=== PATIENT | male | born 1970 | race Caucasian/White ===

== ENCOUNTER 2019-04-16 15:28 | Inpatient (IN) | payer OTHER ==
[~2019-04-16] VITALS: Ht 182.9 cm; Wt 83.7 kg
[2019-04-16] MEDS ORDERED: AMLO10TA5 PO (15:40)
[2019-04-16] MEDS ORDERED: ATEN25TA PO (15:40)
[2019-04-16] MEDS ORDERED: LISI10TA4 PO (15:40)
[2019-04-16 16:37] LABS: BASO # 0.1 10^3/uL (0.0-0.2); BASO % 0.5 % (0.0-1.0); EOS # 0.1 10^3/uL (0.0-0.5); EOS % 0.7 % (0.0-3.0); HEMATOCRIT 29.7 % (42.0-52.0); HEMOGLOBIN 9.5 g/dl (13.5-17.5); LYMPH # 0.8 10^3/uL (1.5-5.0); LYMPH % 5.5 % (24.0-44.0); MEAN CORPUSCULAR HEMOGLOBIN 25.5 pg (27.0-33.0); MEAN CORPUSCULAR VOLUME 79.6 fl (80.0-96.0); MONO # 1.2 10^3/uL (0.0-0.8); MONO % 7.9 % (0.0-5.0); NEUTROPHILS # 12.9 10^3/uL (1.5-8.5); NEUTROPHILS % 84.9 % (36.0-66.0); PLATELET COUNT, AUTOMATED 292 10^3/uL (150-450); RED BLOOD COUNT 3.73 10^6/uL (4.30-6.10); WHITE BLOOD COUNT 15.2 10^3/uL (4.0-10.0)
[2019-04-16 16:50] LABS: INR 1.15; PROTHROMBIN TIME 14.5 SECONDS (11.8-14.0)
[2019-04-16 16:51] LABS: PARTIAL THROMBOPLASTIN TIME 35.1 SECONDS (25.0-38.4)
[2019-04-16 17:11] LABS: ALBUMIN 2.1 GM/DL (3.2-5.2); ALT/SGPT 130 U/L (12-78); BILIRUBIN,DIRECT 5.2 MG/DL (0.0-0.2); BILIRUBIN,TOTAL 6.8 MG/DL (0.2-1.0); BLOOD UREA NITROGEN 13 MG/DL (7-18); CALCIUM LEVEL 8.2 MG/DL (8.5-10.1); CARBON DIOXIDE LEVEL 27 MEQ/L (21-32); CHLORIDE LEVEL 96 MEQ/L (98-107); CK-MB VALUE MASS 3.3 NG/ML (<3.6); CPK CREATINE PHOSPHOKINASE 92 U/L (39-308); CREATININE FOR GFR 0.58 MG/DL (0.70-1.30); GLOMERULAR FILTRATION RATE > 60.0 (>60); GLUCOSE, FASTING 132 MG/DL (70-100); LIPASE 146 U/L (73-393); MB/CK RELATIVE INDEX 3.59 (< OR =4); SODIUM LEVEL 132 MEQ/L (136-145); TROPONIN I < 0.02 NG/ML (< 0.10)
[2019-04-16] MEDS ORDERED: ISOVUE-370 76% 100ML VIAL (Q9967) As Ordered ONE (18:07)
[2019-04-16] MEDS ORDERED: OMEP20CA4 PO (18:49)
[2019-04-16] MEDS ORDERED: NAPR-885 PO (18:49)
[2019-04-16] MEDS ORDERED: CYCL10TA PO (18:49)
--- NOTE | 2019-04-16 19:09 | HPEPDOC ---
[facility] Medical History & Physical Date of Admission Apr 16, 2019 Date of Service: Apr 16, 2019 Primary Care Physician: A Attending Physician: JUSTIN NEWBY MD History and Physical TIME OF SERVICE: 8 PM CHIEF COMPLAINT: Bloating HISTORY OF PRESENT ILLNESS: This is a 48-year-old male who presents with complaints of bloating and abdominal discomfort that has gradually worsened over the last 3 weeks. He denies having overt abdominal pain. As a result of the abdominal bloating he has not been able to eat very much. He denies having fevers, chills, nausea, vomiting, diarrhea, or leg swelling. He does admit to feeling like he has gained weight. He admits to being told that he has liver problems, but reports that he was told by a physician that his liver is doing better. He's also had esophageal varices, history of lower GI bleed, but denies having history of pancreatitis. H is last drink was about 4 weeks ago; he denies ever having seizures if he abstains from alcohol. His father was at the bedside admits that the patient's skin and eyes look more yellow than usual. REVIEW OF SYSTEMS: 12 point review of systems negative except as listed in HPI PAST MEDICAL/ SURGICAL HISTORY: Liver cirrhosis complicated by esophageal varices status post banding a few months ago and lower GI bleed Chronic hypertension. SOCIAL HISTORY: Quit smoking Drinks alcohol. Reports last was 4 weeks ago Smokes marijuana FAMILY HISTORY: Hypertension Coronary artery disease ALLERGIES: Please see below. HOME MEDICATIONS: Please see below. PHYSICAL EXAMINATION: VITAL SIGNS: Please see below. GENERAL APPEARANCE: Well-nourished, well-developed, not in apparent distress HEENT: Normocephalic, atraumatic. Marked scleral icterus. Mucous membranes slightly dry CARDIOVASCULAR: Tachycardic, no murmurs, rubs or gallops, extremity is warm and well-perfused, there is no lower extremity edema LUNGS: Decreased ability to take deep breaths because of abdominal distention, the lungs are clear to auscultation bilaterally on room air ABDOMEN: Markedly distended, firm patient does not grimace with palpation of abdomen MUSCULOSKELETAL: Range of motion intact in all 4 extremities INTEGUMENT: Jaundice NEUROLOGICAL: Cranial nerves II-12 are grossly intact. Speech is not dysarthric PSYCHIATRIC: Alert and oriented to person, place and time, able to understand and follow commands LABORATORY DATA: See below. IMAGING: Chest x-ray appears unremarkable but final read is pending. CT abdomen and pelvis "IMPRESSION: 1. Cirrhosis, splenomegaly and large volume ascites. 2. Edematous appearing ascending colon. This can commonly be seen in the setting of hepatic failure with hypoalbuminemia. Focal colitis could also give the appearance." ASSESSMENT: Mr. Pace is a 48-year-old male with a past medical history of chronic hypertension, liver cirrhosis who will be admitted for diagnostic and t herapeutic paracentesis. PLAN: 1. Ascites Likely secondary to liver cirrhosis. Plan: f/u strict Is and Os and daily weights / salt restriction to <2g / abstinence from alcohol +/- baclofen / stop all NSAIDs (Naproxen) & ACEI (Lisinopril) / since he doesn't have a fever, abdominal pain or tenderness, or altered mental status we will hold off starting abx until we have the PMN / IR consult for diagnostic and therapeutic paracentesis / post paracentesis f/u serum albumin, INR, ascitic fluid cell count & differential, ascitic fluild culture, ascitic fluid total protein, ascitic fluid albumin, ascitic fluild glucose, ascitic fluid gram stain, ascitic fluid AFB smear and culture / IF 5L or more of ascitic fluid is removed we will give 6-8g/L of albumin + start diuretic thepray with Spirinolactone 50mg + lasix 20mg AFTER the procedure has been done and the SAAG score is calculated 2. Liver cirrhosis/ Esophageal Varicies Likely due to alcohol abuse. Despite elevated LFTs he denies having overt abdominal pain Plan: trend LFTs & coags/ f/u serum Etho, UDS & hepatitis panel / patient is new to the area and will need an outpatient referral to event manager 3. Alcohol Abuse Plan: telemetry / seizure precautions / fall precautions / Thiamine 100mg daily, Folic acid 1mg daily, MVI / IVF / Zofran PRN for n/v /social work consult for referral to AA or other local support group / Ativan Q2H PRN per CIWA protocol 4. Leukocytosis. Differential includes SBP versus reactive vs colitis He denied having n/v/d Plan: monitor vitals 5. Microcytic anemia Likely multifactorial in nature Plan: Follow-up iron studies and stool occult 6. Mild hypervolemic hyponatremia. 2/2 fluid overload due to liver failure +/- beer potomania Plan: Follow-up urine sodium and osmolality/ follow-up BMP in the morning 7. Hyperglycemia. Plan: Follow-up A1c 8.Chronic HTN Plan: hold lisinopril bc of acities / c/w amlodipine & atenolol and uptitrate as needed [place] Prediction Score to determine need for AC in hospitalized pts = 3 points Pharmacologic prophylaxis is NOT indicated. Consider using mechanical prophylaxis. = SCDs Disposition pending clinical course Vital Signs Vital Signs Date Time Temp Pulse Resp B/P (MAP) Pulse Ox O2 Delivery O2 Flow Rate FiO2 04/16/19 18:43 104 99 04/16/19 18:30 167/92 (117) 04/16/19 16:16 99.5 16 Room Air Laboratory Data Labs 24H Laboratory Tests 2 04/16/19 16:27: Immature Granulocyte % (Auto) 0.5, White Blood Count 15.2H, Red Blood Count 3.73L, Hemoglobin 9.5L, Hematocrit 29.7L, Mean Corpuscular Volume 79.6L, Mean Corpuscular Hemoglobin 25.5L, Mean Corpuscular Hemoglobin Concent 32.0, Red Cell Distribution Width 29.8H, Platelet Count 292, Neutrophils (%) (Auto) 84.9H, Lymphocytes (%) (Auto) 5.5L, Monocytes (%) (Auto) 7.9H, Eosinophils (%) (Auto) 0.7, Basophils (%) (Auto) 0.5, Neutrophils # (Auto) 12.9H, Lymphocytes # (Auto) 0.8L, Monocytes # (Auto) 1.2H, Eosinophils # (Auto) 0.1, Basophils # (Auto) 0.1, Nucleated Red Blood Cells % (auto) 0.0, Prothrombin Time 14.5H, Prothromb Time International Ratio 1.15, Activated Partial Thromboplast Time 35.1, Anion Gap 9, Glomerular Filtration Rate > 60.0, Calcium Level 8.2L, Aspartate Amino Transf (AST/SGOT) 283H, Alanine Aminotransferase (ALT/SGPT) 130H, Alkaline Phosphatase 240H, Total Bilirubin 6.8H, Direct Bilirubin 5.2H, Ammonia 16.37803, Total Creatine Kinase 92, Creatine Kinase MB 3.3, Creatine Kinase MB Relative Index 3.59, Troponin I < 0.02, Total Protein 7.0, Albumin 2.1L, Albumin/Globulin Ratio 0.43L, Lipase 146 CBC/BMP Laboratory Tests 04/16/19 16:27 Red Blood Count 3.73 L, Mean Corpuscular Volume 79.6 L, Mean Corpuscular Hemoglobin 25.5 L, Mean Corpuscular Hemoglobin Concent 32.0, Red Cell Distribution Width 29.8 H, Neutrophils (%) (Auto) 84.9 H, Lymphocytes (%) (Auto) 5.5 L, Monocytes (%) (Auto) 7.9 H, Eosinophils (%) (Auto) 0.7, Basophils (%) (Auto) 0.5, Neutrophils # (Auto) 12.9 H, Lymphocytes # (Auto) 0.8 L, Monocytes # (Auto) 1.2 H, Eosinophils # (Auto) 0.1, Basophils # (Auto) 0.1 Microbiology Microbiology 04/16/19 Blood Culture, Received Pending Home Medications Scheduled Amlodipine Besylate (Amlodipine Besylate) 10 Mg Tablet, 10 MG PO DAILY Atenolol (Atenolol) 50 Mg Tablet, 50 MG PO DAILY Lisinopril (Lisinopril) 10 Mg Tablet, 10 MG PO DAILY Omeprazole (Omeprazole) 20 Mg Capsule.dr, 20 MG PO DAILY Scheduled PRN Cyclobenzaprine HCl (Cyclobenzaprine HCl) 10 Mg Tablet, 10 MG PO QHS PRN for MUSCLE SPASMS Naproxen (Naproxen) 500 Mg Tablet, 500 MG PO BID PRN for PAIN Allergies Coded Allergies: No Known Allergies (Unverified , 04/16/19) A-FIB/CHADSVASC A-FIB History Current/History of A-Fib/PAF?: No Current PO Anticoag Therapy: JUSTIN Clement MD Apr 16, 2019 19:09
[2019-04-16] MEDS ORDERED: ATEN50TA2 PO (19:21)
--- NOTE | 2019-04-16 19:38 | REPVR ---
PROCEDURE INFORMATION: Exam: CT Abdomen and pelvis with contrast Exam date and time: 04/16/2019 6:28 PM Clinical history: 48 years old, male; Bloating; Additional info: Distended TECHNIQUE: Imaging protocol: Computed tomography of the abdomen and pelvis with intravenous contrast. Radiation optimization: All CT scans at this facility use at least one of these dose optimization techniques: automated exposure control; mA and/or kV adjustment per patient size (includes targeted exams where dose is matched to clinical indication); or iterative reconstruction. Contrast material: ISOVUE 370; Contrast volume: 100 ml; Contrast route: IV; COMPARISON: No relevant prior studies available. FINDINGS: Lungs: Atelectatic change is present in the right lung base. Liver: Liver appears cirrhotic with nodular margins. No focal lesion. Gallbladder and bile ducts: Gallbladder is distended. No stones or ductal dilatation. Pancreas: Pancreas appears normal. No focal mass or peripancreatic inflammation. Spleen: Spleen is enlarged measuring 15 cm. No focal lesion. Adrenals: Adrenal glands are normal in appearance. Kidneys and ureters: Kidneys appear normal, with no stone, solid mass or hydronephrosis. Stomach and bowel: No evidence of small bowel obstruction. There may be mild ascending colonic wall thickening which can be seen with hypoalbuminemia related to hepatic failure. No convincing evidence of diverticulitis. Appendix: Appendix appears normal and air-filled. Intraperitoneal space: Large volume abdominal and pelvic transudate density free fluid. No peripherally enhancing collection. No pneumoperitoneum. No pneumoperitoneum. Vasculature: Main portal and splenic veins enhance normally. Atherosclerotic change present in the aorta, without aneurysm. Lymph nodes: No enlarged lymph nodes. Bladder: Urinary bladder appears normal. Bones/joints: Bony structures show no acute fracture or destructive process. Soft tissues: Fat containing umbilical hernia is present. IMPRESSION: 1. Cirrhosis, splenomegaly and large volume ascites. 2. Edematous appearing ascending colon. This can commonly be seen in the setting of hepatic failure with hypoalbuminemia. Focal colitis could also give the appearance. COMMENT: Consistent with the [employer]'s Incidental Findings Committee Report (J Am Tripp Radiol 2010): Unless the patient's specific circumstances suggest otherwise, any liver lesion 0.5 cm or less, any cystic kidney lesion less than 1.0 cm, and/or any adrenal lesion 1.0 cm or less not otherwise characterized in this report as possessing suspicious or indeterminate imaging features is/are highly likely to be benign and do not require follow-up imaging or biopsy. Electronically signed by: Thierry Balbuena On 04/16/2019 19:38:24 PM
[2019-04-16 20:19] LABS: ETHYL ALCOHOL (ETHANOL) < 0.003 % (0.000-0.010); FERRITIN 72 NG/ML (26-388); IRON (FE) 79 UG/DL (65-175); PERCENT SATURATION 32.2 % (19.7-50.0); TOTAL IRON BINDING CAPACITY 245 UG/DL (250-450)
[2019-04-16] MEDS ORDERED: ENOXAPARIN 40 MG/0.4 ML SYRINGE (J1650) SC SCH (21:00)
[2019-04-16 21:58] LABS: AMPHETAMINES LEVEL URINE NEGATIVE (NEGATIVE); BARBITURATES URINE NEGATIVE (NEGATIVE); BENZODIAZEPINES URINE POSITIVE (NEGATIVE); CANNABINOIDS URINE POSITIVE (NEGATIVE); COCAINE METABOLITE URINE NEGATIVE (NEGATIVE); METHADONE URINE NEGATIVE (NEGATIVE); OPIATES URINE NEGATIVE (NEGATIVE); PHENCYCLIDINE URINE NEGATIVE (NEGATIVE)
[2019-04-16 22:10] VITALS: BP 160/85
[2019-04-16] MEDS ORDERED: diphenhydrAMINE 25 MG CAP PO ONE (22:30)
[2019-04-16] MEDS ORDERED: CYCLOBENZAPRINE 10 MG TAB PO PRN (23:00)
[2019-04-16] MEDS ORDERED: ONDANSETRON 4 MG TAB (S0181) PO PRN (23:00)
[2019-04-16] MEDS ORDERED: LORazepam 2 MG TAB PO PRN (23:00)
[2019-04-16 23:59] VITALS: BP 148/90
[2019-04-17 04:00] VITALS: BP 158/91
[2019-04-17] MEDS ORDERED: traMADol 50 MG TAB PO ONE (04:30)
[2019-04-17 06:14] LABS: HEMATOCRIT 29.1 % (42.0-52.0); HEMOGLOBIN 9.3 g/dl (13.5-17.5); MEAN CORPUSCULAR HEMOGLOBIN 25.7 pg (27.0-33.0); MEAN CORPUSCULAR VOLUME 80.4 fl (80.0-96.0); PLATELET COUNT, AUTOMATED 252 10^3/uL (150-450); RED BLOOD COUNT 3.62 10^6/uL (4.30-6.10); WHITE BLOOD COUNT 15.5 10^3/uL (4.0-10.0)
[2019-04-17 06:36] LABS: ALT/SGPT 116 U/L (12-78); BLOOD UREA NITROGEN 14 MG/DL (7-18); CALCIUM LEVEL 8.3 MG/DL (8.5-10.1); CARBON DIOXIDE LEVEL 28 MEQ/L (21-32); CHLORIDE LEVEL 96 MEQ/L (98-107); CREATININE FOR GFR 0.47 MG/DL (0.70-1.30); GLOMERULAR FILTRATION RATE > 60.0 (>60); GLUCOSE, FASTING 96 MG/DL (70-100); POTASSIUM SERUM 3.7 MEQ/L (3.5-5.1); SODIUM LEVEL 131 MEQ/L (136-145); TOTAL PROTEIN 7.1 GM/DL (6.4-8.2)
--- NOTE | 2019-04-17 07:56 | REP ---
PA and lateral chest: There are no comparisons. There is an incomplete inspiratory effort. The left cardiac margin has an unusual shape, of uncertain significance. This could possibly represent a pericardial cyst or myocardial aneurysm. Cardiac size is mildly enlarged. The [place], mediastinum, and skeletal structures are unremarkable. Electronically Signed by Kody Carroll MD 04/17/2019 07:48 A
[2019-04-17 08:00] VITALS: BP 174/94
--- NOTE | 2019-04-17 08:14 | ECGEPIP ---
[facility] - ED Test Date: 2019-04-16 Pat Name: PARTH CARDOSO Department: Room: - Gender: Male [employer] Rental Manager: anne marie : 1970 Requested By: RUSSELL Peralta Order Number: [id number] Reading MD: Rosa Campbell Measurements Intervals [place] Rate: 108 P: 52 DE: 169 QRS: -1 QRSD: 95 T: -17 QT: 281 QTc: 377 Interpretive Statements SINUS TACHYCARDIA LEFT ATRIAL ENLARGEMENT POSSIBLE LEFT VENTRICULAR HYPERTROPHY INFERIOR MYOCARDIAL INFARCTION, OF INDETERMINATE AGE, CLINICAL CORRELATION NSTTW abnormalities PRWP No prior Electronically Signed on 04-17-2019 8:13:53 EDT by Rosa Campbell
[2019-04-17] MEDS: OMEPRAZOLE 20 MG CAP PO SCH (08:43)
[2019-04-17] MEDS: ATENOLOL 50 MG TAB PO SCH (08:43)
[2019-04-17] MEDS: amLODIPine 10 MG TAB PO SCH (08:43)
[2019-04-17] MEDS: PRENATAL VITAMINS CHEWABLE TABLET PO SCH (08:43)
[2019-04-17] MEDS: THIAMINE 100 MG TAB PO SCH (08:43)
[2019-04-17] MEDS: FOLIC ACID 1 MG TAB PO SCH (08:43)
[2019-04-17] MEDS ORDERED: ALPRAZolam 0.25 MG TAB PO PRN (08:45)
[2019-04-17] MEDS ORDERED: INFLUENZA QUADRIVALENT PF VACCINE 0.5ML SYRINGE (90686) IM ONE (09:00)
--- NOTE | 2019-04-17 09:29 | IPNPDOC ---
Subjective Date Seen The patient was seen on 04/17/19. Subjective Chief Complaint/HPI Patient is feeling very anxious. He was thinking to leave the hospital because he is he is not feeling comfortable, does not awake to tomorrow for paracentesis. I had a long discussion with patient, all the risks and benefits of getting proper treatment were expressed. Patient finally decided to stay living tomorrow till he gets his paracentesis done as long as his anxiety is addressed General: Reports: Other Symptoms (anxious); Denies: ROS Unobtainable, Chills, Night Sweats, Fatigue, Malaise, Normal Appetite Constitutional: Denies: Chills, Fever, Malaise, Night Sweats, Weakness, Fatigue, Weight Loss, Lethargy, Other Pulmonary: Denies: Dyspnea, Cough, Pleuritic Chest Pain, Other Symptoms Cardiovascular: Denies: Chest Pain, Palpitations, Orthopnea, Paroxysmal Noc. Dyspnea, Edema, Lt Headedness, Other Symptoms Musculoskeletal: Denies: Neck Pain, Back Pain, Shoulder Pain, Arm Pain, Hand Pain, Leg Pain, Foot Pain, Joint Pain, Muscle Pain, Spasms, Other Symptoms Neurological: Denies: Weakness, Numbness, Incoordination, Change in speech, Confusion, Seizures, Other Symptoms Psych: Reports: Anxiety Objective Physical Examination General Exam: Positive: Alert, Cooperative, Other (anxious) Eye Exam: Positive: PERRLA, Conjunctiva & lids normal ENT Exam: Positive: Atraumatic, Mucous membr. moist/pink Neck Exam: Positive: Supple Chest Exam: Positive: Clear to auscultation, Normal air movement Heart Exam: Positive: Rate Normal, Normal S1, Normal S2 Abdomen Exam: Positive: Normal bowel sounds Extremity Exam: Positive: Normal pulses Skin Exam: Positive: Nl turgor and temperature Neuro Exam: Positive: Normal Speech, Strength at 5/5 X4 ext, Sensation Intact Psych Exam: Positive: Anxiety Assessment /Plan Problems (1) Ascites Status: Acute Problem Text: Ascites secondary to liver cirrhosis Paracentesis by interventional radiologist has been ordered Radiology department called cannot be done today. Will be done hopefully tomorrow Continue supportive care Continue present medications (2) Cirrhosis Status: Chronic Problem Text: History of liver cirrhosis and esophageal varices secondary to alcohol abuse Patient is otherwise asymptomatic except ascites Was the ascites was drained. Patient will be discharged home tomorrow A low with GI as an outpatient Continue present medications (3) Anxiety Status: Acute Problem Text: History of anxiety and also could be secondary to alcohol withdrawal Will consider given him Xanax 0.25 mg by mouth every 8 hours when necessary monitor his mental status Reassuring and counseling done at bedside Plan/VTE VTE Prophylaxis Ordered?: Yes VS, I&O, 24H, Fishbone Vital Signs/I&O Vital Signs Date Time Temp Pulse Resp B/P (MAP) Pulse Ox O2 Delivery O2 Flow Rate FiO2 04/17/19 08:43 117 174/94 04/17/19 08:00 99.4 20 96 04/16/19 16:16 Room Air I&O- Last 24 Hours up to 6 AM 04/17/19 06:00 Intake Total 0 ml Balance 0 ml Laboratory Data 24H LABS Laboratory Tests 2 04/16/19 16:27: Immature Granulocyte % (Auto) 0.5, White Blood Count 15.2H, Red Blood Count 3.73L, Hemoglobin 9.5L, Hematocrit 29.7L, Mean Corpuscular Volume 79.6L, Mean Corpuscular Hemoglobin 25.5L, Mean Corpuscular Hemoglobin Concent 32.0, Red Cell Distribution Width 29.8H, Platelet Count 292, Neutrophils (%) (Auto) 84.9H, Lymphocytes (%) (Auto) 5.5L, Monocytes (%) (Auto) 7.9H, Eosinophils (%) (Auto) 0.7, Basophils (%) (Auto) 0.5, Neutrophils # (Auto) 12.9H, Lymphocytes # (Auto) 0.8L, Monocytes # (Auto) 1.2H, Eosinophils # (Auto) 0.1, Basophils # (Auto) 0.1, Nucleated Red Blood Cells % (auto) 0.0, Prothrombin Time 14.5H, Prothromb Time International Ratio 1.15, Activated Partial Thromboplast Time 35.1, Anion Gap 9, Glomerular Filtration Rate > 60.0, Calcium Level 8.2L, Aspartate Amino Transf (AST/SGOT) 283H, Alanine Aminotransferase (ALT/SGPT) 130H, Alkaline Phosphatase 240H, Total Bilirubin 6.8H, Direct Bilirubin 5.2H, Ammonia 16.42018, Total Creatine Kinase 92, Creatine Kinase MB 3.3, Creatine Kinase MB Relative Index 3.59, Troponin I < 0.02, Total Protein 7.0, Albumin 2.1L, Albumin/Globulin Ratio 0.43L, Lipase 146, Urine Amphetamines Screen NEGATIVE, Urine Benzodiazepines Screen POSITIVEH, Urine Opiates Screen NEGATIVE, Urine Methadone Screen NEGATIVE, Urine Barbiturates Screen NEGATIVE, Urine Phencyclidine Screen NEGATIVE, Urine Cocaine Metabolite Screen NEGATIVE, Urine Cannabinoids Screen POSITIVEH 04/16/19 19:25: Iron Level 79, Total Iron Binding Capacity 245L, Transferrin % Saturation 32.2, Ferritin 72, Ethyl Alcohol Level < 0.003 04/16/19 22:36: OL-Mpe-U-Type Natriuretic Peptide 90 04/17/19 05:59: Nucleated Red Blood Cells % (auto) 0.0, Anion Gap 7L, Glomerular Filtration Rate > 60.0, Calcium Level 8.3L, Aspartate Amino Transf (AST/SGOT) 257H, Alanine Aminotransferase (ALT/SGPT) 116H, Alkaline Phosphatase 229H, Total Bilirubin 6.0H, Total Protein 7.1, Albumin 2.0L, Albumin/Globulin Ratio 0.39L, Blood Urea Nitrogen 14, Creatinine 0.47L, Sodium Level 131L, Potassium Level 3.7, Chloride Level 96L, Carbon Dioxide Level 28, Magnesium Level 2.0 CBC/BMP Laboratory Tests 04/16/19 16:27 Red Blood Count 3.73 L, Mean Corpuscular Volume 79.6 L, Mean Corpuscular Hemoglobin 25.5 L, Mean Corpuscular Hemoglobin Concent 32.0, Red Cell Distrib ution Width 29.8 H, Neutrophils (%) (Auto) 84.9 H, Lymphocytes (%) (Auto) 5.5 L, Monocytes (%) (Auto) 7.9 H, Eosinophils (%) (Auto) 0.7, Basophils (%) (Auto) 0.5, Neutrophils # (Auto) 12.9 H, Lymphocytes # (Auto) 0.8 L, Monocytes # (Auto) 1.2 H, Eosinophils # (Auto) 0.1, Basophils # (Auto) 0.1 04/17/19 05:59 Red Blood Count 3.62 L, Mean Corpuscular Volume 80.4, Mean Corpuscular Hemoglobin 25.7 L, Mean Corpuscular Hemoglobin Concent 32.0, Red Cell Distribution Width 30.3 H, Calcium Level 8.3 L, Aspartate Amino Transf (AST/SGOT) 257 H, Alanine Aminotransferase (ALT/SGPT) 116 H, Alkaline Phosphatase 229 H, Total Bilirubin 6.0 H, Total Protein 7.1, Albumin 2.0 L Microbiology Microbiology 04/16/19 Blood Culture, Received Pending 04/16/19 Blood Culture, Received Pending RAMBO PARKER MD Apr 17, 2019 09:29
[2019-04-17 12:00] VITALS: BP 173/89
[2019-04-17 16:00] VITALS: BP 127/65
[2019-04-17] MEDS ORDERED: SLF 3 ML SYR IV PRN (16:00)
[2019-04-17] MEDS ORDERED: raNITIdine SYRUP 150 MG/10 ML UDC PO PRN (19:15)
[2019-04-17] MEDS ORDERED: CALCIUM CARBONATE 500 MG CHEW U/D PO PRN (19:15)
[2019-04-17 20:00] VITALS: BP 143/81
[2019-04-17] MEDS: SLF 3 ML SYR IV SCH (22:08)
[2019-04-17 23:59] VITALS: BP 134/84
[2019-04-18] VITALS (13 sets, daily range): BP systolic 120–137; BP diastolic 58–94
[2019-04-18 05:49] LABS: BASO # 0.1 10^3/uL (0.0-0.2); BASO % 0.6 % (0.0-1.0); EOS # 0.4 10^3/uL (0.0-0.5); EOS % 2.4 % (0.0-3.0); HEMATOCRIT 31.6 % (42.0-52.0); LYMPH # 1.6 10^3/uL (1.5-5.0); MEAN CORPUSCULAR HEMOGLOBIN 26.3 pg (27.0-33.0); MEAN CORPUSCULAR HGB CONC 31.6 g/dl (32.0-36.5); MEAN CORPUSCULAR VOLUME 83.2 fl (80.0-96.0); MONO # 1.7 10^3/uL (0.0-0.8); MONO % 10.6 % (0.0-5.0); NEUTROPHILS # 11.9 10^3/uL (1.5-8.5); NEUTROPHILS % 75.8 % (36.0-66.0); PLATELET COUNT, AUTOMATED 224 10^3/uL (150-450); WHITE BLOOD COUNT 15.7 10^3/uL (4.0-10.0)
[2019-04-18 06:12] LABS: ALT/SGPT 110 U/L (12-78); BILIRUBIN,TOTAL 4.8 MG/DL (0.2-1.0); BLOOD UREA NITROGEN 11 MG/DL (7-18); CALCIUM LEVEL 8.2 MG/DL (8.5-10.1); CARBON DIOXIDE LEVEL 28 MEQ/L (21-32); CHLORIDE LEVEL 96 MEQ/L (98-107); CREATININE FOR GFR 0.47 MG/DL (0.70-1.30); GLOMERULAR FILTRATION RATE > 60.0 (>60); GLUCOSE, FASTING 93 MG/DL (70-100); POTASSIUM SERUM 3.5 MEQ/L (3.5-5.1); SODIUM LEVEL 130 MEQ/L (136-145); TOTAL PROTEIN 7.2 GM/DL (6.4-8.2)
[2019-04-18] MEDS: SLF 3 ML SYR IV SCH ×3 (06:33→20:07)
[2019-04-18] MEDS: PRENATAL VITAMINS CHEWABLE TABLET PO SCH (08:23)
[2019-04-18] MEDS: FOLIC ACID 1 MG TAB PO SCH (08:23)
[2019-04-18] MEDS: OMEPRAZOLE 20 MG CAP PO SCH (08:23)
[2019-04-18] MEDS: amLODIPine 10 MG TAB PO SCH (08:24)
[2019-04-18] MEDS: THIAMINE 100 MG TAB PO SCH (08:24)
[2019-04-18] MEDS: ATENOLOL 50 MG TAB PO SCH (08:24)
--- NOTE | 2019-04-18 09:49 | IPNPDOC ---
Subjective Date Seen The patient was seen on 04/18/19. Subjective Chief Complaint/HPI Patient is comfortable offers no new complaints, awaiting paracentesis. General: Denies: ROS Unobtainable, Chills, Night Sweats, Fatigue, Malaise, Normal Appetite, Other Symptoms Constitutional: Denies: Chills, Fever, Malaise, Night Sweats, Weakness, Fatigue, Weight Loss, Lethargy, Other Pulmonary: Denies: Dyspnea, Cough, Pleuritic Chest Pain, Other Symptoms Cardiovascular: Denies: Chest Pain, Palpitations, Orthopnea, Paroxysmal Noc. Dyspnea, Edema, Lt Headedness, Other Symptoms Gastrointestinal: Denies: Nausea, Vomiting, Abdominal Pain, Diarrhea, Constipation, Melena, Hematochezia, Other Symptoms Musculoskeletal: Denies: Neck Pain, Back Pain, Shoulder Pain, Arm Pain, Hand Pain, Leg Pain, Foot Pain, Joint Pain, Muscle Pain, Spasms, Other Symptoms Neurological: Denies: Weakness, Numbness, Incoordination, Change in speech, Confusion, Seizures, Other Symptoms Objective Physical Examination Neck Exam: Positive: Supple Chest Exam: Positive: Clear to auscultation, Normal air movement Heart Exam: Positive: Rate Normal, Normal S1, Normal S2 Abdomen Exam: Positive: Normal bowel sounds Extremity Exam: Positive: Normal pulses Skin Exam: Positive: Nl turgor and temperature Neuro Exam: Positive: Normal Speech, Strength at 5/5 X4 ext, Sensation Intact Psych Exam: Positive: Anxiety Assessment /Plan Problems (1) Ascites Status: Acute Problem Text: Ascites secondary to liver cirrhosis Patient is a scheduled for paracentesis by IR today Will monitor patient off paracentesis for a few hours to make sure his vital signs are stable He will probably discharge home today with follow-up with GI and continue all his home meds Patient is clinically asymptomatic except large ascites (2) Cirrhosis Status: Chronic Problem Text: History of liver cirrhosis and esophageal varices secondary to alcohol abuse Patient is otherwise asymptomatic except ascites Paracentesis today Follow-up with GI as an outpatient ,Continue present medications (3) Anxiety Status: Acute Problem Text: History of anxiety and also could be secondary to alcohol withdrawal Will consider given him Xanax 0.25 mg by mouth every 8 hours when necessary monitor his mental status Reassuring and counseling done at bedside Plan/VTE VTE Prophylaxis Ordered?: Yes VS, I&O, 24H, Fishbone Vital Signs/I&O Vital Signs Date Time Temp Pulse Resp B/P (MAP) Pulse Ox O2 Delivery O2 Flow Rate FiO2 04/18/19 08:24 98 137/94 04/18/19 07:42 97.3 18 98 04/16/19 16:16 Room Air I&O- Last 24 Hours up to 6 AM 04/18/19 06:00 Intake Total 1100 ml Output Total 400 ml Balance 700 ml Laboratory Data 24H LABS Laboratory Tests 2 04/18/19 05:32: Immature Granulocyte % (Auto) 0.6, White Blood Count 15.7H, Red Blood Count 3.80L, Hemoglobin 10.0L, Hematocrit 31.6L, Mean Corpuscular Volume 83.2, Mean Corpuscular Hemoglobin 26.3L, Mean Corpuscular Hemoglobin Concent 31.6L, Red Cell Distribution Width 30.1H, Platelet Count 224, Neutrophils (%) (Auto) 75.8H, Lymphocytes (%) (Auto) 10.0L, Monocytes (%) (Auto) 10.6H, Eosinophils (%) (Auto) 2.4, Basophils (%) (Auto) 0.6, Neutrophils # (Auto) 11.9H, Lymphocytes # (Auto) 1.6, Monocytes # (Auto) 1.7H, Eosinophils # (Auto) 0.4, Basophils # (Auto) 0.1, Nucleated Red Blood Cells % (auto) 0.0, Anion Gap 6L, Glomerular Filtration Rate > 60.0, Blood Urea Nitrogen 11, Creatinine 0.47L, Sodium Level 130L, Potassium Level 3.5, Chloride Level 96L, Carbon Dioxide Level 28, Calcium Level 8.2L, Aspartate Amino Transf (AST/SGOT) 238H, Alanine Aminotransferase (ALT/SGPT) 110H, Alkaline Phosphatase 245H, Total Bilirubin 4.8H, Total Protein 7.2, [place] min 2.0L, Albumin/Globulin Ratio 0.38L CBC/BMP Laboratory Tests 04/18/19 05:32 Red Blood Count 3.80 L, Mean Corpuscular Volume 83.2, Mean Corpuscular Hemoglobin 26.3 L, Mean Corpuscular Hemoglobin Concent 31.6 L, Red Cell Distribution Width 30.1 H, Neutrophils (%) (Auto) 75.8 H, Lymphocytes (%) (Auto) 10.0 L, Monocytes (%) (Auto) 10.6 H, Eosinophils (%) (Auto) 2.4, Basophils (%) (Auto) 0.6, Neutrophils # (Auto) 11.9 H, Lymphocytes # (Auto) 1.6, Monocytes # (Auto) 1.7 H, Eosinophils # (Auto) 0.4, Basophils # (Auto) 0.1, Calcium Level 8.2 L, Aspartate Amino Transf (AST/SGOT) 238 H, Alanine Aminotransferase (ALT/SGPT) 110 H, Alkaline Phosphatase 245 H, Total Bilirubin 4.8 H, Total Protein 7.2, Albumin 2.0 L Microbiology Microbiology 04/16/19 Blood Culture - Preliminary, Resulted No growth after 24 hours . All specim... 04/16/19 Blood Culture - Preliminary, Resulted No growth after 24 hours . All specim... RAMBO PARKER MD Apr 18, 2019 09:49
[2019-04-18 11:27] LABS: FOLATE 8.7 NG/ML (>5.4); VITAMIN B12 LEVEL > 2000 PG/ML (247-911)
[2019-04-18 11:38] LABS: HEPATITIS B SURFACE ANTIGEN NEGATIVE (NEGATIVE)
[2019-04-18 11:51] LABS: SOURCE, BODY FLUID ASCITES
[2019-04-18 11:58] LABS: APPEARANCE, BODY FLUID CLEAR (CLEAR); ASCITES FL COLOR YELLOW (COLORLESS); SPEC. GRAVITY BODY FLUIDS 1.009 (NOT ESTABLISHED)
[2019-04-18 12:04] LABS: HEPATITIS C VIRUS ABY INDEX 0.2 INDEX (<0.8)
[2019-04-18 12:05] LABS: HEPATITIS B CORE ANTIBODY IGM NEGATIVE (NEGATIVE)
[2019-04-18 12:08] LABS: HEPATITIS A ANTIBODY IGM NEGATIVE (NEGATIVE)
[2019-04-18 12:30] LABS: SOURCE, BODY FLUID ALBUMIN ASCITES; SOURCE, BODY FLUID GLUCOSE ASCITES; SOURCE, BODY FLUID TOT PROTEIN ASCITES; TOTAL PROTEIN, BODY FLUID 0.4 G/DL (NOT ESTABLISHED)
--- NOTE | 2019-04-18 14:54 | REP ---
Ultrasound-guided paracentesis The procedure was performed under the direct supervision of Dr. Arredondo. The risks and benefits of the procedure were explained to the patient and informed consent was obtained. The largest pocket of fluid was localized in the right flank using ultrasound guidance. The skin was prepped and draped in a sterile fashion. 1% lidocaine was used as a local anesthetic. An 8-Wolof multi side-hole catheter was inserted using trocar technique. 9350 ml of yellow fluid was withdrawn with a sample sent to the lab for analysis. The patient tolerated the procedure well and there were no immediate complications. After the appropriate amount of monitored convalescence the patient was discharged from the department. Electronically Signed by TOMAS Salcedo 04/18/2019 01:28 P Electronically Signed by Kody Arredondo MD 04/18/2019 02:45 P
[2019-04-18] MEDS: cefTRIAXone SOD 1 GM in D5W MINI-BAG PLUS 50 ML IV SCH (17:17)
[2019-04-19] VITALS: BP 137/82
[2019-04-19 04:00] VITALS: BP 138/77
[2019-04-19] MEDS: SLF 3 ML SYR IV SCH ×2 (05:05→14:12)
[2019-04-19 05:58] LABS: BASO # 0.1 10^3/uL (0.0-0.2); BASO % 0.8 % (0.0-1.0); EOS # 0.3 10^3/uL (0.0-0.5); EOS % 2.1 % (0.0-3.0); HEMATOCRIT 29.8 % (42.0-52.0); HEMOGLOBIN 9.5 g/dl (13.5-17.5); LYMPH # 1.1 10^3/uL (1.5-5.0); LYMPH % 9.3 % (24.0-44.0); MEAN CORPUSCULAR HEMOGLOBIN 26.2 pg (27.0-33.0); MEAN CORPUSCULAR HGB CONC 31.9 g/dl (32.0-36.5); MEAN CORPUSCULAR VOLUME 82.3 fl (80.0-96.0); MONO # 1.2 10^3/uL (0.0-0.8); MONO % 9.5 % (0.0-5.0); NEUTROPHILS # 9.5 10^3/uL (1.5-8.5); NEUTROPHILS % 77.8 % (36.0-66.0); PLATELET COUNT, AUTOMATED 198 10^3/uL (150-450); RED BLOOD COUNT 3.62 10^6/uL (4.30-6.10); WHITE BLOOD COUNT 12.2 10^3/uL (4.0-10.0)
[2019-04-19 06:18] LABS: ALBUMIN 1.8 GM/DL (3.2-5.2); ALT/SGPT 91 U/L (12-78); BILIRUBIN,TOTAL 4.3 MG/DL (0.2-1.0); BLOOD UREA NITROGEN 11 MG/DL (7-18); CALCIUM LEVEL 7.7 MG/DL (8.5-10.1); CARBON DIOXIDE LEVEL 28 MEQ/L (21-32); CHLORIDE LEVEL 98 MEQ/L (98-107); CREATININE FOR GFR 0.44 MG/DL (0.70-1.30); GLOMERULAR FILTRATION RATE > 60.0 (>60); GLUCOSE, FASTING 86 MG/DL (70-100); POTASSIUM SERUM 3.4 MEQ/L (3.5-5.1); SODIUM LEVEL 133 MEQ/L (136-145); TOTAL PROTEIN 6.6 GM/DL (6.4-8.2)
[2019-04-19 07:49] VITALS: BP 131/68
[2019-04-19] MEDS ORDERED: POTASSIUM CHLORIDE 10 MEQ SR TABLET PO ONE (08:00)
[2019-04-19] MEDS: OMEPRAZOLE 20 MG CAP PO SCH (08:35)
[2019-04-19] MEDS: FOLIC ACID 1 MG TAB PO SCH (08:36)
[2019-04-19 08:37] VITALS: BP 140/74
[2019-04-19] MEDS: amLODIPine 10 MG TAB PO SCH (08:37)
[2019-04-19] MEDS: THIAMINE 100 MG TAB PO SCH (08:37)
[2019-04-19] MEDS: ATENOLOL 50 MG TAB PO SCH (08:37)
[2019-04-19] MEDS: PRENATAL VITAMINS CHEWABLE TABLET PO SCH (08:37)
[2019-04-19 11:16] VITALS: BP 128/66
--- NOTE | 2019-04-19 15:14 | DS.PDOC ---
Discharge Summary General Date of Admission Apr 16, 2019 at 19:04 Date of Discharge 04/19/2019 Attending Physician: SHA PEREZ MD Discharge Summary PROCEDURES PERFORMED DURING STAY: Paracentesis. ADMITTING DIAGNOSES: 1. Ascites. DISCHARGE DIAGNOSES: 1. Ascites. COMPLICATIONS/CHIEF COMPLAINT: Ascites. HISTORY OF PRESENT ILLNESS: 48-year-old male with past medical history of cirrhosis and subsequent development of ascites was admitted for abdominal distention. He has never had paracentesis in the past and he does not follow-up with a windmill technician in the outpatient setting. He underwent a diagnostic and therapeutic paracentesis, SBP was ruled out, he feels significantly better since then; he has no complaints at this time. He is tolerating diet, ambulating, denies nausea, vomiting, diarrhea or constipation. He reports that he will follow up with her windmill technician from now on, he is new to the area and requesting information on a local windmill technician. HOSPITAL COURSE: As above. DISCHARGE MEDICATIONS: Please see below. ALLERGIES: Please see below. PHYSICAL EXAMINATION ON DISCHARGE: VITAL SIGNS: Please see below. GENERAL: No distress HEENT: Normocephalic, atraumatic. Positive scleral icterus, moist mucous membranes NECK: Supple CARDIOVASCULAR EXAMINATION: S1, S2 RESPIRATORY EXAMINATION: Clear to auscultation ABDOMINAL EXAMINATION: Distended, soft, nontender, positive bowel sounds EXTREMITIES: Range of motion intact SKIN: No rash NEUROLOGICAL EXAMINATION: Alert and oriented 3, no focal deficits PSYCHIATRIC EXAMINATION: Calm LABORATORY DATA: Please see below. PROGNOSIS: Fair ACTIVITY: As tolerated. DIET: Low-sodium DISCHARGE PLAN: Patient would follow-up with windmill technician and PCP, last drink was 6 weeks ago, discussed importance of not relapsing and consequences of further alcohol intake. DISPOSITION: Home. DISCHARGE INSTRUCTIONS: 1. Please follow with windmill technician and PCP within 1-2 weeks. ITEMS TO FOLLOWUP ON ON OUTPATIENT: 1. As per above. DISCHARGE CONDITION: Stable. TIME SPENT ON DISCHARGE: Greater than 34 minutes. Vital Signs/I&Os Vital Signs Date Time Temp Pulse Resp B/P (MAP) Pulse Ox O2 Delivery O2 Flow Rate FiO2 04/19/19 11:16 98.2 76 18 128/66 (86) 97 04/16/19 16:16 Room Air I&O- Last 24 Hours up to 6 AM 04/19/19 06:00 Intake Total 750 ml Output Total 3250 ml Balance -2500 ml Laboratory Data Labs 24H Laboratory Tests 2 04/19/19 05:31: Immature Granulocyte % (Auto) 0.5, White Blood Count 12.2H, Red Blood Count 3.62L, Hemoglobin 9.5L, Hematocrit 29.8L, Mean Corpuscular Volume 82.3, Mean Corpuscular Hemoglobin 26.2L, Mean Corpuscular Hemoglobin Concent 31.9L, Red Cell Distribution Width 30.0H, Platelet Count 198, Neutrophils (%) (Auto) 77.8H, Lymphocytes (%) (Auto) 9.3L, Monocytes (%) (Auto) 9.5H, Eosinophils (%) (Auto) 2 .1, Basophils (%) (Auto) 0.8, Neutrophils # (Auto) 9.5H, Lymphocytes # (Auto) 1.1L, Monocytes # (Auto) 1.2H, Eosinophils # (Auto) 0.3, Basophils # (Auto) 0.1, Nucleated Red Blood Cells % (auto) 0.0, Anion Gap 7L, Glomerular Filtration Rate > 60.0, Blood Urea Nitrogen 11, Creatinine 0.44L, Sodium Level 133L, Potassium Level 3.4L, Chloride Level 98, Carbon Dioxide Level 28, Calcium Level 7.7L, Aspartate Amino Transf (AST/SGOT) 212H, Alanine Aminotransferase (ALT/SGPT) 91H, Alkaline Phosphatase 226H, Total Bilirubin 4.3H, Total Protein 6.6, Albumin 1.8L, Albumin/Globulin Ratio 0.38L CBC/BMP Laboratory Tests 04/19/19 05:31 Red Blood Count 3.62 L, Mean Corpuscular Volume 82.3, Mean Corpuscular Hemoglobin 26.2 L, Mean Corpuscular Hemoglobin Concent 31.9 L, Red Cell Distribu tion Width 30.0 H, Neutrophils (%) (Auto) 77.8 H, Lymphocytes (%) (Auto) 9.3 L, Monocytes (%) (Auto) 9.5 H, Eosinophils (%) (Auto) 2.1, Basophils (%) (Auto) 0.8, Neutrophils # (Auto) 9.5 H, Lymphocytes # (Auto) 1.1 L, Monocytes # (Auto) 1.2 H, Eosinophils # (Auto) 0.3, Basophils # (Auto) 0.1, Calcium Level 7.7 L, Aspartate Amino Transf (AST/SGOT) 212 H, Alanine Aminotransferase (ALT/SGPT) 91 H, Alkaline Phosphatase 226 H, Total Bilirubin 4.3 H, Total Protein 6.6, Albumin 1.8 L Microbiology Microbiology 04/17/19 Acid Fast Stain, Received Pending 04/17/19 Mycobacterial Culture, Received Pending 04/17/19 Fungal Smear, Received Pending 04/17/19 Fungal Culture, Received Pending 04/17/19 Gram Stain - Final, Resulted 04/17/19 Body Fluid Culture, Resulted Pending 04/16/19 Blood Culture - Preliminary, Resulted No Growth after 48 hours. All Specime... 04/16/19 Blood Culture - Preliminary, Resulted No Growth after 48 hours. All Specime... Discharge Medications Scheduled Amlodipine Besylate (Amlodipine Besylate) 10 Mg Tablet, 10 MG PO DAILY, (Reported) Atenolol (Atenolol) 50 Mg Tablet, 50 MG PO DAILY, (Reported) Lisinopril (Lisinopril) 10 Mg Tablet, 10 MG PO DAILY, (Reported) Omeprazole (Omeprazole) 20 Mg Capsule.dr, 20 MG PO DAILY, (Reported) Scheduled PRN Cyclobenzaprine HCl (Cyclobenzaprine HCl) 10 Mg Tablet, 10 MG PO QHS PRN for MUSCLE SPASMS, (Reported) Allergies Coded Allergies: No Known Allergies (Unverified , 04/16/19) SHA PEREZ MD Apr 19, 2019 15:05
[2019-04-19] MEDS: cefTRIAXone SOD 1 GM in D5W MINI-BAG PLUS 50 ML IV SCH (16:00)
== END 2019-04-19 16:05 | disposition home or self-care (01) | DRG 280 ==
LOC: M ED 15:28 → M ED INP 19:04 → M PCU 21:53
PROVIDERS: ADMIT Internal Medicine; ATTEND Internal Medicine
PROC: 0W9F3ZZ Drainage of Abdominal Wall, Percutaneous Approach (ICD-10-PCS; principal; 2019-04-18 12:00)
DX: K70.31 Alcoholic cirrhosis of liver with ascites (principal); I85.10 Secondary esophageal varices without bleeding; E87.1 Hypo-osmolality and hyponatremia; I10 Essential (primary) hypertension; F12.90 Cannabis use, unspecified, uncomplicated; D50.9 Iron deficiency anemia, unspecified; Z79.899 Other long term (current) drug therapy; Z87.891 Personal history of nicotine dependence; D72.829 Elevated white blood cell count, unspecified; F41.9 Anxiety disorder, unspecified

== ENCOUNTER 2019-05-08 17:34 | Emergency (ER) | payer OTHER ==
[~2019-05-08] VITALS: Ht 182.9 cm; Wt 91.8 kg
[~2019-05-08 17:34] MED LIST: AMLO10TA5 PO; ATEN25TA PO; ATEN50TA2 PO; CYCL10TA PO; LISI10TA4 PO; NAPR-885 PO; OMEP20CA4 PO
[2019-05-08] MEDS ORDERED: DULO1CAP6 PO (17:46)
[2019-05-08 18:13] LABS: BASO # 0.1 10^3/uL (0.0-0.2); BASO % 0.8 % (0.0-1.0); EOS # 0.2 10^3/uL (0.0-0.5); EOS % 1.5 % (0.0-3.0); HEMATOCRIT 32.3 % (42.0-52.0); HEMOGLOBIN 10.5 g/dl (13.5-17.5); LYMPH # 1.2 10^3/uL (1.5-5.0); LYMPH % 11.6 % (24.0-44.0); MEAN CORPUSCULAR HEMOGLOBIN 29.4 pg (27.0-33.0); MEAN CORPUSCULAR HGB CONC 32.5 g/dl (32.0-36.5); MEAN CORPUSCULAR VOLUME 90.5 fl (80.0-96.0); MONO % 10.1 % (0.0-5.0); NEUTROPHILS # 7.6 10^3/uL (1.5-8.5); NEUTROPHILS % 75.7 % (36.0-66.0); PLATELET COUNT, AUTOMATED 332 10^3/uL (150-450); RED BLOOD COUNT 3.57 10^6/uL (4.30-6.10)
[2019-05-08 18:23] LABS: INR 1.27; PROTHROMBIN TIME 15.6 SECONDS (11.8-14.0)
[2019-05-08 18:29] LABS: ALT/SGPT 59 U/L (12-78); BILIRUBIN,DIRECT 1.7 MG/DL (0.0-0.2); BILIRUBIN,TOTAL 2.7 MG/DL (0.2-1.0); LIPASE 159 U/L (73-393); TOTAL PROTEIN 8.1 GM/DL (6.4-8.2)
[2019-05-08] MEDS ORDERED: [UNRECOGNIZED DRUG - REMARK] (18:48)
[2019-05-08 19:07] LABS: BLOOD UREA NITROGEN 14 MG/DL (7-18); CALCIUM LEVEL 8.5 MG/DL (8.5-10.1); CARBON DIOXIDE LEVEL 24 MEQ/L (21-32); CHLORIDE LEVEL 99 MEQ/L (98-107); CREATININE FOR GFR 1.02 MG/DL (0.70-1.30); GLOMERULAR FILTRATION RATE > 60.0 (>60); GLUCOSE, FASTING 116 MG/DL (70-100); POTASSIUM SERUM 4.1 MEQ/L (3.5-5.1); SODIUM LEVEL 131 MEQ/L (136-145)
[2019-05-08 19:22] VITALS: BP 104/59
== END 2019-05-08 19:26 | disposition home or self-care (01) ==
LOC: M ED 17:34
DX: R18.8 Other ascites (principal); I10 Essential (primary) hypertension; K74.60 Unspecified cirrhosis of liver; Z87.891 Personal history of nicotine dependence; Z82.49 Family history of ischemic heart disease and other diseases of the circulatory system; Z79.899 Other long term (current) drug therapy

== ENCOUNTER → 2019-05-10 | Outpatient (CLI) | payer OTHER ==
[~2019-05-10] MED LIST changes: +DULO1CAP6 PO; +[UNRECOGNIZED DRUG - REMARK]
[2019-05-10 15:27] VITALS: BP 109/58
--- NOTE | 2019-05-11 11:14 | REP ---
Ultrasound-guided paracentesis The procedure was performed under the direct supervision of Dr. Arredondo. The risks and benefits of the procedure were explained to the patient and informed consent was obtained. The largest pocket of fluid was localized in the right flank using ultrasound guidance. The skin was prepped and draped in a sterile fashion. 1% lidocaine was used as a local anesthetic. An 8-Slovak multi side-hole catheter was inserted using trocar technique. 12,400 ml of yellow fluid was withdrawn and discarded. The patient tolerated the procedure well and there were no immediate complications. After the appropriate amount of monitored convalescence the patient was discharged from the department. Electronically Signed by TOMAS Salcedo 05/10/2019 05:29 P Electronically Signed by Kody Arredondo MD 05/11/2019 11:05 A
== END ==
LOC: M IRPRO 13:57
PROVIDERS: ATTEND Emergency Medicine
DX: R18.8 Other ascites (principal)

== ENCOUNTER 2019-05-30 13:38 | Emergency (ER) | payer OTHER ==
[~2019-05-30] VITALS: Ht 182.9 cm; Wt 77.3 kg
[2019-05-30 16:06] LABS: BASO # 0.1 10^3/uL (0.0-0.2); BASO % 0.8 % (0.0-1.0); EOS # 0.1 10^3/uL (0.0-0.5); EOS % 1.6 % (0.0-3.0); HEMATOCRIT 33.3 % (42.0-52.0); HEMOGLOBIN 10.8 g/dl (13.5-17.5); LYMPH % 10.9 % (24.0-44.0); MEAN CORPUSCULAR HEMOGLOBIN 30.4 pg (27.0-33.0); MEAN CORPUSCULAR HGB CONC 32.4 g/dl (32.0-36.5); MEAN CORPUSCULAR VOLUME 93.8 fl (80.0-96.0); MONO # 1.1 10^3/uL (0.0-0.8); MONO % 12.1 % (0.0-5.0); NEUTROPHILS # 6.4 10^3/uL (1.5-8.5); NEUTROPHILS % 74.1 % (36.0-66.0); PLATELET COUNT, AUTOMATED 280 10^3/uL (150-450); RED BLOOD COUNT 3.55 10^6/uL (4.30-6.10); WHITE BLOOD COUNT 8.7 10^3/uL (4.0-10.0)
[2019-05-30 16:19] LABS: INR 1.27; PROTHROMBIN TIME 15.7 SECONDS (11.8-14.0)
[2019-05-30 16:20] LABS: PARTIAL THROMBOPLASTIN TIME 36.5 SECONDS (25.0-38.4)
[2019-05-30 16:29] LABS: ALBUMIN 1.9 GM/DL (3.2-5.2); ALT/SGPT 37 U/L (12-78); BILIRUBIN,DIRECT 1.1 MG/DL (0.0-0.2); BILIRUBIN,TOTAL 2.4 MG/DL (0.2-1.0); BLOOD UREA NITROGEN 11 MG/DL (7-18); CALCIUM LEVEL 8.2 MG/DL (8.5-10.1); CARBON DIOXIDE LEVEL 26 MEQ/L (21-32); CHLORIDE LEVEL 97 MEQ/L (98-107); CREATININE FOR GFR 0.97 MG/DL (0.70-1.30); GLOMERULAR FILTRATION RATE > 60.0 (>60); GLUCOSE, FASTING 99 MG/DL (70-100); LIPASE 139 U/L (73-393); POTASSIUM SERUM 4.4 MEQ/L (3.5-5.1); SODIUM LEVEL 129 MEQ/L (136-145); TOTAL PROTEIN 7.5 GM/DL (6.4-8.2)
[2019-05-30 16:45] VITALS: BP 112/67
== END 2019-05-30 17:02 | disposition home or self-care (01) ==
LOC: M ED 13:38
DX: R18.8 Other ascites (principal); I85.00 Esophageal varices without bleeding; I10 Essential (primary) hypertension; K21.9 Gastro-esophageal reflux disease without esophagitis; K74.60 Unspecified cirrhosis of liver; M54.9 Dorsalgia, unspecified; F41.9 Anxiety disorder, unspecified; Z79.899 Other long term (current) drug therapy

== ENCOUNTER → 2019-05-31 | Outpatient (CLI) | payer OTHER ==
[2019-05-31 16:05] VITALS: BP 114/73
--- NOTE | 2019-05-31 20:45 | REP ---
Ultrasound-guided paracentesis The procedure was performed by TOMAS Joiner, under the direct supervision of Dr. Arredondo. The risks and benefits of the procedure were explained to the patient and informed consent was obtained both verbally and written. Directly prior to the start of the procedure, a formal timeout was completed in the procedure room. Under ultrasound guidance, the largest pocket of fluid in the right flank was localized and skin was marked. The skin was then prepped and draped in a sterile fashion. 10 ml of 1% lidocaine was used as a local anesthetic. Using ultrasound guidance, an 8-Swazi multi side-hole catheter was inserted using trocar technique. 12,600 mL of yellow colored fluid was withdrawn and discarded. The patient tolerated the procedure well and there were no immediate complications. After the appropriate monitored convalescence the patient was discharged from the department. Reviewed by TOMAS Mcdonald 05/31/2019 04:10 P Electronically Signed by Kody Arredondo MD 05/31/2019 08:36 P
== END ==
LOC: M IRPRO 13:25
DX: R18.8 Other ascites (principal)

== ENCOUNTER 2019-06-16 08:16 | Emergency (ER) | payer OTHER ==
[~2019-06-16] VITALS: Ht 182.9 cm; Wt 89.1 kg
[2019-06-16] MEDS ORDERED: [UNRECOGNIZED DRUG - OTHER] (09:25)
[2019-06-16 09:42] VITALS: BP 110/61
== END 2019-06-16 09:44 | disposition home or self-care (01) ==
LOC: M ED 08:16
DX: K74.60 Unspecified cirrhosis of liver (principal); R18.8 Other ascites; I10 Essential (primary) hypertension; F12.10 Cannabis abuse, uncomplicated; F10.10 Alcohol abuse, uncomplicated; Z79.899 Other long term (current) drug therapy

== ENCOUNTER → 2019-06-17 | Outpatient (CLI) | payer OTHER ==
[~2019-06-17] MED LIST changes: +OMEP-172 PO; -OMEP20CA4 PO; +[UNRECOGNIZED DRUG - OTHER]
[2019-06-17 15:40] VITALS: BP 111/54
--- NOTE | 2019-06-17 15:57 | REP ---
Ultrasound-guided paracentesis The procedure was performed under the direct supervision of Dr. Arredondo. The risks and benefits of the procedure were explained to the patient and informed consent was obtained. The largest pocket of fluid was localized in the right flank in using ultrasound guidance. The skin was prepped and draped in a sterile fashion. 1% lidocaine was used as a local anesthetic. An 8-Kiswahili multi side-hole catheter was inserted using trocar technique. 13,100 ml of yellow fluid was withdrawn and discarded. The patient tolerated the procedure well and there were no immediate complications. After the appropriate amount of monitored convalescence the patient was discharged from the department. Electronically Signed by TOMAS Salcedo 06/17/2019 03:22 P Electronically Signed by Kody Arredondo MD 06/17/2019 03:48 P
== END ==
LOC: M IRPRO 12:57
PROVIDERS: ATTEND Internal Medicine
DX: R18.8 Other ascites (principal); K74.60 Unspecified cirrhosis of liver

== ENCOUNTER → 2019-06-30 | Outpatient (CLI) | payer OTHER ==
[2019-06-30 13:11] LABS: APPEARANCE, URINE HAZY (CLEAR); BACTERIA, URINE AUTO NEGATIVE (NEGATIVE); BILIRUBIN, URINE AUTO NEGATIVE (NEGATIVE); BLOOD, URINE BLOOD NEGATIVE (NEGATIVE); COLOR, URINE AMBER (YELLOW); GLUCOSE, URINE (UA) AUTO NEGATIVE (NEGATIVE); KETONE, URINE AUTO TRACE mg/dL (NEGATIVE); LEUKOCYTE ESTERASE, URINE AUTO NEGATIVE (NEGATIVE); MUCUS, URINE SMALL (NEGATIVE); NITRITE, URINE AUTO NEGATIVE (NEGATIVE); PROTEIN, URINE AUTO NEGATIVE (NEGATIVE); RBC, URINE AUTO 1 /HPF (0-3); SPECIFIC GRAVITY URINE AUTO 1.026 (1.002-1.035); SQUAMOUS EPITHELIAL CELL UR AU 0 /HPF (0-6); WBC, URINE AUTO 4 /HPF (0-3)
[2019-06-30 13:27] LABS: ALBUMIN 1.9 GM/DL (3.2-5.2); ALT/SGPT 34 U/L (12-78); BILIRUBIN,DIRECT 0.6 MG/DL (0.0-0.2); BILIRUBIN,TOTAL 1.3 MG/DL (0.2-1.0); BLOOD UREA NITROGEN 23 MG/DL (7-18); CALCIUM LEVEL 8.3 MG/DL (8.5-10.1); CARBON DIOXIDE LEVEL 25 MEQ/L (21-32); CHLORIDE LEVEL 103 MEQ/L (98-107); CREATININE FOR GFR 0.73 MG/DL (0.70-1.30); GLOMERULAR FILTRATION RATE > 60.0 (>60); GLUCOSE, FASTING 119 MG/DL (70-100); SODIUM LEVEL 135 MEQ/L (136-145); TOTAL PROTEIN 7.3 GM/DL (6.4-8.2)
[2019-06-30 13:53] LABS: SODIUM,RANDOM URINE 10 MEQ/L
[2019-07-01 11:04] LABS: HEPATITIS B SURFACE ANTIBODY NEGATIVE (POSITIVE)
== END ==
LOC: M PLALAB 10:24
PROVIDERS: ATTEND Internal Medicine Gastroenterology
DX: K70.31 Alcoholic cirrhosis of liver with ascites (principal)

== ENCOUNTER → 2019-07-04 | Outpatient (CLI) | payer OTHER ==
[2019-07-04 14:18] LABS: APPEARANCE, BODY FLUID HAZY (CLEAR); ASCITES FL COLOR YELLOW (COLORLESS); SOURCE, BODY FLUID ASCITES
[2019-07-04 14:52] LABS: SOURCE, BODY FLUID ALBUMIN ASCITES; SOURCE, BODY FLUID TOT PROTEIN ASCITES; TOTAL PROTEIN, BODY FLUID 1.2 G/DL (NOT ESTABLISHED)
[2019-07-04 16:00] VITALS: BP 117/63
--- NOTE | 2019-07-07 12:34 | REP ---
Ultrasound-guided paracentesis The procedure was performed by TOMAS Joiner, under the direct supervision of Dr. Arredondo. The risks and benefits of the procedure were explained to the patient and informed consent was obtained both verbally and written. Directly prior to the start of the procedure, a formal timeout was completed in the procedure room. Under ultrasound guidance, the largest pocket of fluid in the left flank was localized and skin was marked. The skin was then prepped and draped in a sterile fashion. 10 ml of 1% lidocaine 10 mg/ml was used as a local anesthetic. Using ultrasound guidance, an 8-Divehi multi side-hole catheter was inserted using trocar technique. 12,300 mL of yellow colored fluid was withdrawn, 200 ml was sent to the lab and the rest was discarded. The patient tolerated the procedure well and there were no immediate complications. After the appropriate monitored convalescence the patient was discharged from the department. Reviewed by TOMAS Mcdonald 07/04/2019 05:27 P Electronically Signed by Kody Arredondo MD 07/07/2019 12:25 P
== END ==
LOC: M IRPRO 12:33
PROVIDERS: ATTEND Internal Medicine Gastroenterology
DX: K70.31 Alcoholic cirrhosis of liver with ascites (principal)
CPT/HCPCS: 49083; 82042; 84157; 88108; 88313; 89051; P9047

== ENCOUNTER → 2019-07-19 | Outpatient (CLI) | payer OTHER ==
[2019-07-19 17:35] LABS: APPEARANCE, URINE CLEAR (CLEAR); BACTERIA, URINE AUTO 1+ (NEGATIVE); BILIRUBIN, URINE AUTO NEGATIVE (NEGATIVE); BLOOD UREA NITROGEN 12 MG/DL (7-18); BLOOD, URINE BLOOD NEGATIVE (NEGATIVE); CALCIUM LEVEL 8.1 MG/DL (8.5-10.1); CARBON DIOXIDE LEVEL 23 MEQ/L (21-32); CHLORIDE LEVEL 100 MEQ/L (98-107); COLOR, URINE AMBER (YELLOW); CREATININE FOR GFR 0.62 MG/DL (0.70-1.30); GLOMERULAR FILTRATION RATE > 60.0 (>60); GLUCOSE, FASTING 98 MG/DL (70-100); GLUCOSE, URINE (UA) AUTO NEGATIVE (NEGATIVE); KETONE, URINE AUTO TRACE mg/dL (NEGATIVE); LEUKOCYTE ESTERASE, URINE AUTO NEGATIVE (NEGATIVE); MUCUS, URINE SMALL (NEGATIVE); NITRITE, URINE AUTO NEGATIVE (NEGATIVE); POTASSIUM SERUM 4.3 MEQ/L (3.5-5.1); PROTEIN, URINE AUTO NEGATIVE (NEGATIVE); RBC, URINE AUTO 2 /HPF (0-3); SODIUM LEVEL 131 MEQ/L (136-145); SPECIFIC GRAVITY URINE AUTO 1.021 (1.002-1.035); SQUAMOUS EPITHELIAL CELL UR AU 0 /HPF (0-6); WBC, URINE AUTO 1 /HPF (0-3)
[2019-07-19 18:03] LABS: SODIUM,RANDOM URINE 11 MEQ/L
== END ==
LOC: M PLALAB 15:24
PROVIDERS: ATTEND Internal Medicine Gastroenterology
DX: K70.31 Alcoholic cirrhosis of liver with ascites (principal)

== ENCOUNTER → 2019-07-25 | Outpatient (CLI) | payer OTHER ==
[~2019-07-25] MED LIST changes: -OMEP-172 PO; +OMEP1CAP73 PO
[2019-07-25 16:32] LABS: BLOOD UREA NITROGEN 13 MG/DL (7-18); CALCIUM LEVEL 8.5 MG/DL (8.5-10.1); CARBON DIOXIDE LEVEL 28 MEQ/L (21-32); CHLORIDE LEVEL 102 MEQ/L (98-107); CREATININE FOR GFR 0.73 MG/DL (0.70-1.30); GLOMERULAR FILTRATION RATE > 60.0 (>60); GLUCOSE, FASTING 116 MG/DL (70-100); POTASSIUM SERUM 4.4 MEQ/L (3.5-5.1); SODIUM LEVEL 136 MEQ/L (136-145)
== END ==
LOC: M PLALAB 14:04
PROVIDERS: ATTEND Internal Medicine Gastroenterology
DX: K70.31 Alcoholic cirrhosis of liver with ascites (principal)

== ENCOUNTER → 2019-08-05 | Outpatient (CLI) | payer OTHER ==
[~2019-08-05] MED LIST changes: +B-1100TA2 PO; +FOLI1TAB11 PO; +FURO20TA2 PO; +OMEP10CASR PO; +SPIR50TA4 PO
[2019-08-05 14:45] LABS: APPEARANCE, BODY FLUID CLEAR (CLEAR); PLEURAL FL COLOR PALE YELLOW (COLORLESS); SOURCE, BODY FLUID PLEURAL
[2019-08-05 15:01] LABS: SOURCE, BODY FLUID ALBUMIN PLEURAL; SOURCE, BODY FLUID TOT PROTEIN PLEURAL; TOTAL PROTEIN, BODY FLUID 1.7 G/DL (NOT ESTABLISHED)
[2019-08-05 15:20] VITALS: BP 141/82
--- NOTE | 2019-08-05 18:43 | REP ---
Ultrasound-guided paracentesis The procedure was performed by TOMAS Joinre, under the direct supervision of Dr. Aldrich. The risks and benefits of the procedure were explained to the patient and informed consent was obtained both verbally and written. Directly prior to the start of the procedure, a formal timeout was completed in the procedure room. Under ultrasound guidance, the largest pocket of fluid in the right flank was localized and skin was marked. The skin was then prepped and draped in a sterile fashion. 10 ml of 1% lidocaine 10 mg/ml was used as a local anesthetic. Using ultrasound guidance, an 8-Sinhala multi side-hole catheter was inserted using trocar technique. 9,650 mL of clear yellow colored fluid was withdrawn, 200 mL was sent to the lab for further analysis, and the remaining fluid was discarded. The patient tolerated the procedure well and there were no immediate complications. After the appropriate monitored convalescence the patient was discharged from the department. Reviewed by TOMAS Mcdonald 08/05/2019 04:35 P Electronically Signed by Kamran Aldrich MD 08/05/2019 06:32 P
== END ==
LOC: M IRPRO 13:23
PROVIDERS: ATTEND Internal Medicine Gastroenterology
DX: K70.31 Alcoholic cirrhosis of liver with ascites (principal)
CPT/HCPCS: 49083; 82042; 84157; 88108; 88313; 89051; P9047

== ENCOUNTER → 2019-08-05 | Outpatient (CLI) | payer OTHER ==
[2019-08-05 14:33] LABS: HEMATOCRIT 34.2 % (42.0-52.0); HEMOGLOBIN 10.9 g/dl (13.5-17.5); MEAN CORPUSCULAR HEMOGLOBIN 30.1 pg (27.0-33.0); MEAN CORPUSCULAR HGB CONC 31.9 g/dl (32.0-36.5); MEAN CORPUSCULAR VOLUME 94.5 fl (80.0-96.0); PLATELET COUNT, AUTOMATED 195 10^3/uL (150-450); RED BLOOD COUNT 3.62 10^6/uL (4.30-6.10)
[2019-08-05 14:38] LABS: ALBUMIN 2.3 GM/DL (3.2-5.2); BILIRUBIN,DIRECT 0.7 MG/DL (0.0-0.2); BILIRUBIN,TOTAL 2.1 MG/DL (0.2-1.0); TOTAL PROTEIN 7.9 GM/DL (6.4-8.2)
[2019-08-05 14:44] LABS: INR 1.33; PROTHROMBIN TIME 16.2 SECONDS (11.8-14.0)
[2019-08-05 14:45] LABS: PARTIAL THROMBOPLASTIN TIME 36.6 SECONDS (25.0-38.4)
== END ==
LOC: M PLALAB 12:53
PROVIDERS: ATTEND Internal Medicine Gastroenterology
DX: K70.31 Alcoholic cirrhosis of liver with ascites (principal)

== ENCOUNTER 2019-08-16 11:28 | Day surgery (SDC) | payer OTHER ==
[~2019-08-16] VITALS: Ht 182.9 cm; Wt 73.5 kg
[~2019-08-16 11:28] MED LIST changes: +LIDOCAINE 2% INJ 100 MG/5 ML SDV (FOR ANES.) As Ordered ONE; +NS 1,000 ML IV ONE; +propofoL 200 MG/20 ML VIAL As Ordered ONE
[2019-08-16] MEDS ORDERED: fentaNYL 100 MCG/2 ML INJECTION (J3010) As Ordered ONE (12:32)
[2019-08-16] MEDS ORDERED: propofoL 200 MG/20 ML VIAL As Ordered ONE ×3 (13:40→14:02)
[2019-08-16] MEDS ORDERED: ePHEDrine SULFATE 25 MG/5 ML(5MG/ML) SYRINGE As Ordered ONE (13:44)
[2019-08-16] MEDS ORDERED: ONDANSETRON 4MG/2ML VIAL (J2405) As Ordered ONE (14:00)
[2019-08-16] MEDS ORDERED: PANTOPRAZOLE 40MG INJ (PROTONIX) (C9113) IV ONE (14:15)
--- NOTE | 2019-08-16 14:16 | ROOR ---
Patient Name: Vini Pace Procedure Date: 08/16/2019 1:20 PM Date of : 1970 Age: 48 Room: [facility] Gender: Male Note Status: Finalized Procedure: Upper GI endoscopy Indications: For therapy of esophageal varices in patient with suspected portal hypertension, To evaluate esophageal varices in patient with suspected portal hypertension, Cirrhosis with suspected esophageal varices Providers: Chandler Boone MD Referring MD: Treasure Kovacs Requesting Provider: Medicines: Monitored Anesthesia Care Complications: No immediate complications. Procedure: Pre-Anesthesia Assessment: - Prior to the procedure, a History and Physical was performed, and patient medications and allergies were reviewed. The patient is competent. The risks and benefits of the procedure and the sedation options and risks were discussed with the patient. All questions were answered and informed consent was obtained. Patient identification and proposed procedure were verified by the physician, the nurse and the anesthesiologist in the procedure room. Mental Status Examination: alert and oriented. Airway Examination: normal oropharyngeal airway and neck mobility. Respiratory Examination: clear to auscultation. CV Examination: normal. Prophylactic Antibiotics: The patient does not require prophylactic antibiotics. Prior Anticoagulants: The patient has taken no previous anticoagulant or antiplatelet agents. ASA Grade Assessment: III - A patient with severe systemic disease. After reviewing the risks and benefits, the patient was deemed in satisfactory condition to undergo the procedure. The anesthesia plan was to use monitored anesthesia care (MAC). Immediately prior to administration of medications, the patient was re-assessed for adequacy to receive sedatives. The heart rate, respiratory rate, oxygen saturations, blood pressure, adequacy of pulmonary ventilation, and response to care were monitored throughout the procedure. The physical status of the patient was re-assessed after the procedure. The Endoscope was introduced through the mouth, and advanced to the second part of duodenum. The upper GI endoscopy was accomplished without difficulty. The patient tolerated the procedure well. Findings: Three columns of non-bleeding grade III, large (> 5 mm) varices were found in the lower third of the esophagus,. Stigmata of recent bleeding were evident and red niels signs were present. Four bands were successfully placed with complete eradication, resulting in deflation of varices. There was no bleeding at the end of the procedure. Striped moderately erythematous mucosa without bleeding was found at the pylorus. The duodenal bulb and second portion of the duodenum were normal. Impression: - Recently bleeding grade III and large (> 5 mm) esophageal varices. Completely eradicated. Banded. - Erythematous mucosa in the pylorus. - Normal duodenal bulb and second portion of the duodenum. - No specimens collected. Recommendation: - Patient has a contact number available for emergencies. The signs and symptoms of potential delayed complications were discussed with the patient. Return to normal activities tomorrow. Written discharge instructions were provided to the patient. - Clear liquid diet for 1 day, then advance as tolerated to low sodium diet. - Continue present medications. - Cipro (ciprofloxacin) 500 mg PO BID for 1 week. 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 - Telephone GI clinic if symptomatic. - Telephone GI clinic for lab results in 1 week. - Return to primary care physician. Chandler Boone MD Chandler Boone MD 08/16/2019 2:16:42 PM Electronically signed by Chandler Boone MD Number of Addenda: 0 Note Initiated On: 08/16/2019 1:20 PM Estimated Blood Loss: Estimated blood loss was minimal.
[2019-08-16 14:41] VITALS: BP 121/60
--- NOTE | 2019-08-16 14:48 | ROOR ---
Patient Name: Vini Pace Procedure Date: 08/16/2019 1:21 PM Date of : 1970 Age: 48 Room: [facility] Gender: Male Note Status: Finalized Procedure: Colonoscopy Indications: Weight loss Providers: Chandler Boone MD Referring MD: Treasure Kovacs Requesting Provider: Medicines: Monitored Anesthesia Care Complications: No immediate complications. Procedure: Pre-Anesthesia Assessment: - Prior to the procedure, a History and Physical was performed, and patient medications and allergies were reviewed. The patient is competent. The risks and benefits of the procedure and the sedation options and risks were discussed with the patient. All questions were answered and informed consent was obtained. Patient identification and proposed procedure were verified by the physician, the nurse and the anesthesiologist in the procedure room. Mental Status Examination: normal. Airway Examination: normal oropharyngeal airway and neck mobility. Respiratory Examination: clear to auscultation. CV Examination: normal. Prophylactic Antibiotics: The patient does not require prophylactic antibiotics. Prior Anticoagulants: The patient has taken no previous anticoagulant or antiplatelet agents. ASA Grade Assessment: II - A patient with mild systemic disease. After reviewing the risks and benefits, the patient was deemed in satisfactory condition to undergo the procedure. The anesthesia plan was to use monitored anesthesia care (MAC). Immediately prior to administration of medications, the patient was re-assessed for adequacy to receive sedatives. The heart rate, respiratory rate, oxygen saturations, blood pressure, adequacy of pulmonary ventilation, and response to care were monitored throughout the procedure. The physical status of the patient was re-assessed after the procedure. The Colonoscope was introduced through the anus and advanced to the terminal ileum, with identification of the appendiceal orifice and IC valve. The colonoscopy was performed without difficulty. The patient tolerated the procedure well. The quality of the bowel preparation was good. The terminal ileum, ileocecal valve, appendiceal orifice, and rectum were photographed. Scope insertion time was 3 minutes. Scope withdrawal time was 9 minutes. The total duration of the procedure was 12 minutes. Findings: The perianal and digital rectal examinations were normal. The terminal ileum appeared normal. Two sessile polyps were found in the rectum and ascending colon. The polyps were 8 to 10 mm in size. These polyps were removed with a cold snare. Resection and retrieval were complete. For hemostasis, two hemostatic clips were successfully placed. There was no bleeding at the end of the procedure. Non-bleeding external and internal hemorrhoids were found during retroflexion. The hemorrhoids were medium-sized. Impression: - The examined portion of the ileum was normal. - Two 8 to 10 mm polyps in the rectum and in the ascending colon, removed with a cold snare. Resected and retrieved. Clips were placed. - Non-bleeding external and internal hemorrhoids. Recommendation: - Patient has a contact number available for emergencies. The signs and symptoms of potential delayed complications were discussed with the patient. Return to normal activities tomorrow. Written discharge instructions were provided to the patient. - Clear liquid diet for 1 day, then advance as tolerated to low sodium diet. - Continue present medications. - Follow the recommendations as per the other procedure note. - Telephone GI clinic if symptomatic. - Return to primary care physician. Chandler Boone MD Chandler Boone MD 08/16/2019 2:48:34 PM Electronically signed by Chandler Boone MD Number of Addenda: 0 Note Initiated On: 08/16/2019 1:21 PM Estimated Blood Loss: Estimated blood loss was minimal.
== END 2019-08-16 14:55 | disposition home or self-care (01) ==
LOC: M OPP 11:28
PROVIDERS: ATTEND Internal Medicine Gastroenterology
DX: K64.8 Other hemorrhoids (principal); K62.1 Rectal polyp; D12.2 Benign neoplasm of ascending colon; R63.4 Abnormal weight loss; K74.60 Unspecified cirrhosis of liver; I85.11 Secondary esophageal varices with bleeding; K31.89 Other diseases of stomach and duodenum; Z79.899 Other long term (current) drug therapy
CPT/HCPCS: 43244; 45385; 88305; J2405; J3010

== ENCOUNTER → 2019-08-22 | Outpatient (CLI) | payer OTHER ==
[~2019-08-22] MED LIST changes: -LIDOCAINE 2% INJ 100 MG/5 ML SDV (FOR ANES.) As Ordered ONE; -NS 1,000 ML IV ONE; -propofoL 200 MG/20 ML VIAL As Ordered ONE
[2019-08-22 14:04] LABS: BLOOD UREA NITROGEN 16 MG/DL (7-18); CALCIUM LEVEL 8.6 MG/DL (8.5-10.1); CARBON DIOXIDE LEVEL 27 MEQ/L (21-32); CHLORIDE LEVEL 101 MEQ/L (98-107); CREATININE FOR GFR 0.68 MG/DL (0.70-1.30); GLOMERULAR FILTRATION RATE > 60.0 (>60); GLUCOSE, FASTING 103 MG/DL (70-100); POTASSIUM SERUM 4.1 MEQ/L (3.5-5.1); SODIUM LEVEL 135 MEQ/L (136-145)
== END ==
LOC: M PLALAB 11:57
PROVIDERS: ATTEND Internal Medicine Gastroenterology
DX: K70.31 Alcoholic cirrhosis of liver with ascites (principal)